=== PATIENT | female | born 1980 | race Caucasian/White ===

== ENCOUNTER 2025-04-19 06:44 | Outpatient (RCR) | payer OTHER, SELFPAY | END 2025-04-19 23:59 | disposition home or self-care (01) | LOC: RPT 06:44 | PROVIDERS: ATTENDING PHYSICIAN Obstetrics & Gynecology; FAMILY PHYSICIAN Nurse Practitioner Family | DX: N81.6 Rectocele (principal); M54.50 Low back pain, unspecified; Z73.6 Limitation of activities due to disability; M62.81 Muscle weakness (generalized); R35.0 Frequency of micturition | CPT/HCPCS: 97163; 97530 ==

== ENCOUNTER 2025-05-18 11:48 | Outpatient (RCR) | payer OTHER, SELFPAY | END 2025-05-18 23:59 | disposition home or self-care (01) | LOC: RPT 11:48 | PROVIDERS: ATTENDING PHYSICIAN Obstetrics & Gynecology; FAMILY PHYSICIAN Nurse Practitioner Family | DX: N81.6 Rectocele (principal); M54.50 Low back pain, unspecified; Z73.6 Limitation of activities due to disability; M62.81 Muscle weakness (generalized); R35.0 Frequency of micturition | CPT/HCPCS: 97110; 97112; 97530 ==

== ENCOUNTER 2025-05-19 06:08 | Outpatient (RCR) | payer OTHER, SELFPAY | END 2025-05-19 23:59 | disposition home or self-care (01) | LOC: ROT 06:08 | PROVIDERS: ATTENDING PHYSICIAN Family Medicine; FAMILY PHYSICIAN Nurse Practitioner Family | DX: M77.11 Lateral epicondylitis, right elbow (principal); Z73.6 Limitation of activities due to disability | CPT/HCPCS: 97166; 97535 ==

== ENCOUNTER 2025-06-10 01:17 | Emergency (ER) | payer OTHER, SELFPAY ==
[2025-06-10 01:40] VITALS: BP 145/98
[2025-06-10 02:33] LABS: Hematocrit 41.8 % (37.0-47.0); Hemoglobin 15.4 g/dL (12.0-16.0); Mean Corp Hgb Conc. 36.8 g/dL (33.0-37.0); Mean Corpuscular Volume 81.6 fL (81.0-99.0); Nucleated Red Blood Cells % 0 %; Platelet Count 201 10^3/uL (130-400); Red Cell Dist. Width 12.5 % (11.5-14.5)
[2025-06-10 02:56] LABS: ALT (SGPT) 21 U/L (0-35); AST (SGOT) 22 U/L (14-36); Albumin 4.4 g/dl (3.5-5.0); Alkaline Phosphatase 74 U/L (38-126); Blood Urea Nitrogen 20 mg/dl (7-17); Calcium 8.7 mg/dl (8.4-10.2); Carbon Dioxide 28 mmol/L (22-30); Chloride 102 mmol/L (98-107); Glucose 104 mg/dl (70-99); Potassium 3.9 mmol/L (3.5-5.1); Sodium 137 mmol/L (135-145); Total Protein 6.9 g/dl (6.3-8.2); eGFR > 60.00
[2025-06-10 02:57] LABS: Urine Character Clear (Clear)
--- NOTE | 2025-06-10 06:04 | ED.GENMED ---
History of Present Illness
General
Chief Complaint: Flank Pain
Source: patient
Exam Limitations: none
Time Seen by Provider: 06/10/25 04:53
Nursing documentation reviewed up to this point in time: agreed with
History of Present Illness
History of Present Illness:
45-year-old female with a history of total hysterectomyIn November
2 weeks of variable symptoms starting with some nausea and anal itching, not only at night
, and then she developed respiratory, never tested for COVID during that time but saw her doctor,and gyne and got steroid cream for her anal region that she had a rash/irritated anal region/gluteal cleft
she says the rash cleared but she is still having itching
she got zpak and steroids orally for her bronchitis but then stopped steroids only after 2 doses becuase she felt she was having side effects
the past weeks he has still had nausea intermittently and now more recently some diarrhea
then also b/l back pain/flank pain which got worse tonight and she had trouble sleeping
pt says it was constant for a while and thus she decided to come totER
pt had diarrhea a ew times today, mroe than previous days
she has not had fever, chills, vomiting, cp, sob, vaginal itching
Past History
Past History
ED Past Medical History: GERD and Other (Lyme Disease)
ED Past Surgical History: Orthopedic
Social History
Tobacco: Former smoker
Alcohol: None
Drug: None
Personal:
Living: with family
Family History
Family History: Negative Diabetes, Hypertension or CAD
Review of Systems
Review of Systems
Allergies reviewed?: Yes
All Other Systems: Not applicable
Phy Exam
Physical Exam
Physical Exam:
GENERAL: Alert , in no apparent distress
EYE: pupils equal and reactive
NECK: Supple
ENT: o/p clr, mmm.
CARDIAC: Regular rate and rhythm .
LUNGS: Clear breath sounds bilaterally, no acute respiratory distress, no wheezes/rales/rhonchi
ABDOMEN: Soft, without focal tenderness, no r/g, no cvat, normal bowel sounds
Rectal area/anal area without any skin breakdown, rash, redness, irritation, no obvious pinworms
Heme-negative brown stool in the vault, no hemorrhoids, no rectal pain
NEUROLOGICAL: Alert and oriented, no focal neuro deficits
SKIN: Warm and dry, skin intact.
MUSCULOSKELETAL: No edema, well perfused. neg lynne's sign
PSYCH: Normal and appropriate interaction.
Course
Orders/Labs/Results
Orders:
Orders
06/10/25 02:20
Complete Blood Count/With Diff Urgent
Comprehensive Metabolic Panel Urgent
06/10/25 02:23
Urinalysis Reflex To Culture Urgent
Date Specimen was Collected: 06/10/25
Time Specimen was Collected: 02:09
Urine Microscopic Reflex Cult Urgent
06/10/25 06:07
COVID-19 Antigen Urgent
Source: Nasal Swab
Abnormal Lab Results
06/10/25 06/10/25
02:20 02:23
WBC 11.7 H 10^3/uL
(4.8-10.8)
Abs Immat Gran (auto) 0.1 H 10^3/uL
(0-0.05)
Absolute Neuts (auto) 9.1 H 10^3/uL
(1.4-6.5)
Absolute Monos (auto) 0.7 H 10^3/uL
(0.1-0.6)
Neutrophils % 77.8 H %
(42.2-75.2)
Lymphocytes % 14.6 L %
(20.5-51.1)
BUN 20 H mg/dl
(7-17)
Glucose 104 H mg/dl
(70-99)
Urine Albumin (Reflex) 1+ A
(Neg - Trace)
06/10/25 02:20
06/10/25 02:20
Vital Signs
Initial and Last Documented VS:
Initial Vital Signs
Temp Pulse BP Pulse Ox
36.8 C 90 145/98 100
06/10/25 01:40 06/10/25 01:40 06/10/25 01:40 06/10/25 01:40
Last Documented Vital Signs
Temp Pulse Resp BP Pulse Ox
36.8 C 85 18 129/88 98
06/10/25 01:40 06/10/25 06:57 06/10/25 06:57 06/10/25 06:57 06/10/25 06:57
MDM/Problems Addressed
Differential Diagnosis Includes:
covid, viral syndrome, colitis, kidney infection, gallstones,
MDM/Problems Addressed:
45 y/o F
weeks of symptoms
nausea/anal itcching which have persisted but waxed and waned
still able to eat
no vomiting
having idarrhea and back pain now
had URI sxs lat week treated with abx
COVID POS 5 day ago
feels like she should be better
now with flank pain b/l that prevented her from sleeping
her pain resovled now
she was sleeping on the stretcher waiting for my evaluation
her labs were reviewed, mininmal wbc elevation
otherwise neg
neg ua
mild b/l back pain worse with movement, could be MSK
pt tested pos at home for covid so this could make sense
doubt pe, no pleuritic component
doubt kidney stone d/t no hematruai
covid neg here but culd be neg after having sypmtoms for so long
pt syas her daughter's cat had a tapeworm so she atned to be tested for parasite but she cannot give stool
offered her CT imaging of her abd/pelvis but it would likely be low yield
pt decined
d/c home
*Pulse Oximetry
SaO2: 100
Oxygen Mode of Delivery: Room air
Patient hypoxic: no (98)
*Critical Care Note
Total Time (30-74mins, 75-104mins- exclusive of procedures): Not Applicable
ED Attending Note
-
Portions of this chart may have been created with voice recognition software.� Occasional wrong word or��sound alike� substitutions may have occurred due to the inherent limitations of voice recognition software.
Discharge Plan
Departure
Patient Disposition: Home (Routine Discharge)
Date of Disposition: 06/10/25
Time of Disposition: 06:51
Patient with high blood pressure during this ER visit?: Yes
Condition: Fair
Covid-19: Not Applicable
Discharge Problem:
Diarrhea, Back pain
Instructions: Diarrhea in adults - ED (DC)
Prescriptions:
No Action
Zantac
150 mg PO DAILY PRN (Reason: reflux)
Referrals:
Cheli Silva CRNP [Family Provider, Family Practice]
Stand Alone Forms: Return to Work
Activity Restrictions/Additional Instructions:
Not sure the cause of your symptoms but it is very reassuring that your blood work is fairly normal. Your white count is minimally elevated which can go along with a virus. Your COVID was negative but this does not mean you do not have COVID
since you have had symptoms for so long. You can continue to follow-up with your family doctor
[place] diet, you could try to give a stool sample to your doctor's office.
Consider imaging if your pain or vomiting or diarrhea gets worse.
Interventions
Interventions:
*General Assessment Last Done: 06/10/25 06:16
*Neglect/Abuse Screening Last Done: 06/10/25 07:11
*ED COVID-19 Vaccine History Last Done: 06/10/25 06:16
*ED Influenza Vaccine History Last Done: 06/10/25 06:16
[facility] Risk Assessment Tool Last Done: 06/10/25 06:16
*Risk Screen - Suicide (C-SSRS) Last Done: 06/10/25 01:48
*Nursing Disposition Last Done: 06/10/25 07:11
KV-Ppyzmd-Rxmzjsgffx Assessment Last Done: 06/10/25 06:13
ED-Female Genitourinary Assessment Last Done: 06/10/25 06:13
Discharge Date and Time
Discharge Date/Time: 06/10/25 07:11
Print Language: FRENCH
[2025-06-10 06:17] LABS: Urine Squamous Cell >30 /LPF (Few)
[2025-06-10 06:18] LABS: Urine Red Blood Cell 0-2 /HPF (0-2); Urine White Cell 0-2 /HPF (0-5)
[2025-06-10 06:29] LABS: COVID-19 Antigen Negative (Negative)
[2025-06-10 06:57] VITALS: BP 129/88
== END 2025-06-10 07:11 | disposition home or self-care (01) ==
LOC: EMR 01:17
PROVIDERS: Physician Assistant; EMERGENCY PHYSICIAN Emergency Medicine; FAMILY PHYSICIAN Nurse Practitioner Family
DX: R19.7 Diarrhea, unspecified (principal); M54.9 Dorsalgia, unspecified; R10.A3 Flank pain, bilateral; Z87.891 Personal history of nicotine dependence; Z11.52 Encounter for screening for COVID-19
CPT/HCPCS: 99283; 80053; 81003; 81015; 85025; 87811

== ENCOUNTER 2025-06-15 17:22 | Outpatient (RCR) | payer OTHER, SELFPAY | END 2025-06-15 23:59 | disposition home or self-care (01) | LOC: RPT 17:22 | PROVIDERS: ATTENDING PHYSICIAN Obstetrics & Gynecology; FAMILY PHYSICIAN Nurse Practitioner Family | DX: N81.6 Rectocele (principal); M54.50 Low back pain, unspecified; Z73.6 Limitation of activities due to disability; M62.81 Muscle weakness (generalized); R35.0 Frequency of micturition | CPT/HCPCS: 97014; 97110; 97112; 97530 ==

== ENCOUNTER 2025-06-15 17:41 | Outpatient (RCR) | payer OTHER, SELFPAY | END 2025-06-15 23:59 | disposition home or self-care (01) | LOC: ROT 17:41 | PROVIDERS: ATTENDING PHYSICIAN Family Medicine; FAMILY PHYSICIAN Nurse Practitioner Family | DX: M77.11 Lateral epicondylitis, right elbow (principal); Z73.6 Limitation of activities due to disability | CPT/HCPCS: 97010; 97110; 97140 ==